=== PATIENT | female | born 1980 | race Caucasian/White ===

== ENCOUNTER 2018-03-11 09:16 | Emergency (ER) | payer OTHER ==
[2018-03-11] MEDS ORDERED: SODIUM CHLORIDE 0.9% 1,000 ML IV ONE (09:43)
[2018-03-11] MEDS ORDERED: PROCHLORPERAZINE INJ 10 MG in SODIUM CHLORIDE 0.9% 50 ML IV ONE (09:43)
[2018-03-11] MEDS ORDERED: DEXAMETHASONE 10 MG/ML VIAL IVP STA (09:44)
[2018-03-11] MEDS ORDERED: KETOROLAC 30 MG/ML VIAL IVP STA (09:44)
[2018-03-11] MEDS ORDERED: diphenhydrAMINE INJ 50 MG/ML VIAL IVP STA (09:44)
--- NOTE | 2018-03-11 09:57 | ED Physician Documentation ---
PD HPI HEADACHE - Stated complaint Stated Complaint: MIGRAINE - Chief complaint Chief Complaint: Neuro - History obtained from History obtained from: Patient - History of Present Illness Timing - onset: How many months ago (1) Timing - details: Still present Worst headache ever?: Worst headache ever? (No) Location: Right Associated symptoms: Nausea. No: Fever, Stiff neck, Vomiting, Weakness, Numbness Contributing factors: No: Possible carbon monoxide, Recent illness, Trauma Similar symptoms before: Diagnosis (Long history of migraine headaches) Recently seen: Clinic (Seen by PMD one week ago, and dose of sumatriptan was increased.) - Additional information Additional information: The patient is a 37-year-old female with history of migraine headaches, who presents with right sided headache that started about 1 month ago. She has been taking sumatriptan and metoclopramide without relief. This headache is similar to her previous migraines, but is lasting longer than usual. She was seen by her primary physician 1 week ago and the dose of sumatriptan was increased at that time. Associated symptoms include photosensitivity and nausea without vomiting. She denies fever, numbness or weakness. Review of Systems Constitutional: denies: Fever Eyes: reports: Photophobia Ears: denies: Tinnitus/ringing Nose: denies: Congestion Throat: denies: Sore throat Cardiac: denies: Chest pain / pressure Respiratory: denies: Dyspnea, Cough GI: reports: Nausea. denies: Abdominal Pain, Vomiting : denies: Dysuria Skin: denies: Rash Musculoskeletal: denies: Neck pain, Back pain Neurologic: reports: Headache. denies: Focal weakness, Numbness PD PAST MEDICAL HISTORY - Past Medical History Cardiovascular: None Respiratory: Asthma Neuro: Headaches, Migraines Endocrine/Autoimmune: None GI: None CHIEF OPTOMETRY SERVICE: None : None HEENT: None Psych: None Musculoskeletal: Rheumatoid arthritis Derm: None - Past Surgical History Past Surgical History: Yes General: Colonoscopy /CHIEF OPTOMETRY SERVICE: section - Present Medications Home Medications: Ambulatory Orders Medication Instructions Recorded Confirmed Ibuprofen [Motrin] 600 mg PO Q6H PRN #30 tab 11/15/13 01/11/14 Metoclopramide [Reglan] 03/11/18 SUMAtriptan [Imitrex] 03/11/18 - Allergies Allergies/Adverse Reactions: Allergies Allergy/AdvReac Type Severity Reaction Status Date / Time aspirin Allergy Unknown Verified 09/07/18 09:27 codeine Allergy Unknown Verified 03/11/18 09:27 latex Allergy Unknown Verified 03/11/18 09:27 Penicillins Allergy Hives Verified 03/11/18 09:27 Sulfa (Sulfonamide Allergy Unknown Verified 03/11/18 09:27 Antibiotics) - Social History Does the pt smoke?: No Smoking Status: Never smoker Does the pt drink ETOH?: Yes Does the pt have substance abuse?: No - Immunizations Immunizations are current?: No Immunizations: TDAP >10years/unknown - POLST Patient has POLST: No PD ED PE NORMAL - Vitals Vital signs reviewed: Yes (normal) - General General: Alert and oriented X 3, Well developed/nourished - HEENT HEENT: Atraumatic, PERRL, EOMI, Ears normal, Pharynx benign, Other (Fundi without papilladema.) - Neck Neck: Supple, no meningeal sign, No adenopathy - Cardiac Cardiac: RRR, No murmur - Respiratory Respiratory: No respiratory distress, Clear bilaterally - Abdomen Abdomen: Soft, Non tender - Back Back: No CVA TTP - Derm Derm: No rash - Extremities Extremities: No edema, No calf tenderness / cord - Neuro Neuro: Alert and oriented X 3, No motor deficit, No sensory deficit, Normal speech Results - Vitals Vitals: Vital Signs - 24 hr 03/11/18 03/11/18 09:22 10:59 Temperature 36.8 C 37.1 C Heart Rate 93 77 Respiratory 20 20 Rate Blood Pressure 99/76 101/50 L O2 Saturation 98 99 Oxygen O2 Source Room air PD MEDICAL DECISION MAKING - ED course Complexity details: reviewed old records, re-evaluated patient, considered differential, d/w patient, d/w family ED course: The patient's presentation is most consistent with recurrent episodic headache. Her presentation does not suggest meningitis, intracerebral hemorrhage, temporal arteritis, or pseudotumor cerebri. I discussed with her the expected course of illness, symptomatic treatment and outpatient follow-up, as well as potentially worrisome signs or symptoms that should prompt reevaluation in the emergency department. - Sepsis Event Vital Signs: Vital Signs - 24 hr 03/11/18 03/11/18 09:22 10:59 Temperature 36.8 C 37.1 C Heart Rate 93 77 Respiratory 20 20 Rate Blood Pressure 99/76 101/50 L O2 Saturation 98 99 Oxygen O2 Source Room air Departure - Departure Disposition: 01 Home, Self Care Clinical Impression: Migraine Qualifiers: Migraine type: unspecified Status migrainosus presence: with status migrainosus Intractability: not intractable Qualified Code(s): G43.901 - Migraine, unspecified, not intractable, with status migrainosus Condition: Stable Instructions: ED Headache Migraine Follow-Up: GREER HERNANDEZ MD [Primary Care Provider] - Comments: Drink plenty of fluids. Continue to use sumatriptan and metoclopramide as previously prescribed if needed for recurrent headache. Follow up with your primary physician within 1-2 weeks. Call to schedule an appointment. Return to the emergency department if you develop recurrent or increasing headache, persistent vomiting, or otherwise worsening symptoms. Discharge Date/Time: 03/11/18 11:00
[2018-03-11 11:00] VITALS: BP 101/50
== END 2018-03-11 11:00 | disposition home or self-care (01) ==
LOC: ED 09:16
DX: G43.901 Migraine, unspecified, not intractable, with status migrainosus (principal)
CPT/HCPCS: 96365; 96375; 99283; 99284; J1200; J7040

== ENCOUNTER 2020-11-13 11:09 | Emergency (ER) | payer OTHER ==
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
[2020-11-13 11:45] VITALS: BP 101/73
[2020-11-13] MEDS ORDERED: KETOROLAC 15 MG/ML VIAL IVP STA (11:47)
[2020-11-13] MEDS ORDERED: HYDROmorphone 2 MG/ML VIAL IM STA (11:48)
[2020-11-13] MEDS ORDERED: KETOROLAC 30 MG/ML VIAL IM STA (12:02)
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
[2020-11-13] MEDS ORDERED: oxyCODONE 5 MG TABLET PO STA (13:12)
== END 2020-11-13 13:34 | disposition home or self-care (01) ==
LOC: ED 11:09
DX: S20.223A Contusion of bilateral back wall of thorax, initial encounter (principal); Y04.2XXA Assault by strike against or bumped into by another person, initial encounter
CPT/HCPCS: 71250; 96372; 99284; J1170

== ENCOUNTER 2021-12-30 14:13 | Emergency (ER) | payer OTHER ==
[2021-12-30 14:25] VITALS: BP 102/66
--- NOTE | 2021-12-30 14:40 | ED Physician Documentation ---
PD HPI LOWER EXT INJURY - Stated complaint Stated Complaint: L ANKLE INJ - Chief complaint Chief Complaint: Trauma Ext - History obtained from History obtained from: Patient, Family () - Additional information Additional information: Injured her ankle a few days ago with an inversion injury after tripping. Pain got worse last night after being startled and reinjuring it now pain going up to the lateral knee and down to the lateral foot. She is able to walk and bear weight. Declines pain medication on initial evaluation. 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: None : None HEENT: None Psych: None Musculoskeletal: Rheumatoid arthritis Derm: None - Past Surgical History Past Surgical History: Yes General: Colonoscopy /SEMICONDUCTORS WAFER BREAKER: section - Present Medications Home Medications: Ambulatory Orders Medication Instructions Recorded Confirmed SUMAtriptan [Imitrex] 100 mg ORAL DAILY PRN 03/11/18 12/30/21 Fexofenadine/Pseudoephedrine 1 tab ORAL DAILY 12/30/21 12/30/21 [Karla-D 24 Hour Tablet] Gabapentin [Neurontin] 300 mg PO BID PRN 12/30/21 12/30/21 HYDROcod/ACETAM 5/325 [Huntley 5/325] 1 - 2 tab PO Q6H PRN #15 tablet 12/30/21 - Allergies Allergies/Adverse Reactions: Allergies Allergy/AdvReac Type Severity Reaction Status Date / Time aspirin Allergy Unknown Verified 12/30/21 14:20 codeine Allergy Unknown Verified 12/30/21 14:20 latex Allergy Unknown Verified 12/30/21 14:20 Penicillins Allergy Hives Verified 12/30/21 14:20 Sulfa (Sulfonamide Allergy Unknown Verified 12/30/21 14:20 Antibiotics) - Social History Does the pt smoke?: No Smoking Status: Never smoker Does the pt drink ETOH?: Yes Does the pt have substance abuse?: No - Immunizations Immunizations are current?: No Immunizations: TDAP >10years/unknown - POLST Patient has POLST: No PD ED PE NORMAL - Vitals Vital signs reviewed: Yes - General General: Alert and oriented X 3, No acute distress - Extremities Extremities: Other (Tender over both malleoli of the left ankle, also mildly over the proximal fibula and proximal fifth metatarsal. No deformity.) - Neuro Neuro: Alert and oriented X 3, Normal speech Results - Vitals Vitals: Vital Signs - 24 hr 12/30/21 14:21 Temperature 36.8 C Heart Rate 94 Respiratory 16 Rate Blood Pressure 102/66 O2 Saturation 100 Oxygen O2 Source Room air - Rads (name of study) X-rays of the left ankle, foot, and tib-fib are negative Radiology: EMP read contemporaneously Departure - Departure Disposition: Home, Self Care Clinical Impression: Ankle injury Qualifiers: Encounter type: initial encounter Laterality: left Qualified Code(s): S99.912A - Unspecified injury of left ankle, initial encounter Injury of foot Qualifiers: Encounter type: initial encounter Laterality: left Qualified Code(s): S99.922A - Unspecified injury of left foot, initial encounter Condition: Good Record reviewed to determine appropriate education?: Yes Instructions: ED Sprain Ankle W X Ray, ED Sprain Foot Prescriptions: HYDROcod/ACETAM 5/325 [Huntley 5/325] 1 - 2 tab PO Q6H PRN #15 tablet PRN Reason: Pain Comments: I sent your prescription electronically to [facility] in [place]. Return for new or worsening symptoms. Follow-up with your doctor at the end of the week or early next week for recheck. I am prescribing a short course of narcotic pain medication for you. These are potentially dangerous and addictive medications that should be used carefully. These medications may constipate you. Take an [id number] stool softener (docusate) twice daily with plenty of water while taking these medications. If you go 24 hours without a bowel movement, take [id number] miralax, per package instructions. Do not drink or drive while taking these medications. If you received narcotic or sedating medications while in the emergency dep artment, do not drive for 24 hours. Store this medication in a safe, secure place and out of reach of children. It is a violation of federal law to give or sell this medication to another person or to use in a manner other than prescribed. The ED will not refill narcotic prescriptions, including prescriptions lost or stolen. To dispose of unwanted medications: 1. [facility] at [address] in [place] has a medication drop box. They accept prescription medications (in pill form) Wednesday through Wednesday 9:00 a.m. to 5:00 p.m. 2. The [facility] accepts prescription medications (in pill form only) for disposal year round. Call for more information. 3. Contact the [facility] for the next [employer] sponsored prescription drug collection event. , [phone], or [phone]; Note that many narcotic pain relievers also contain Tylenol/acetaminophen. Please ensure that your total dose of acetaminophen from all sources does not exceed 3 g (3000 mg) per day. Discharge Date/Time: 12/30/21 16:05
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
--- NOTE | 2021-12-30 15:07 | XRAY Report ---
PROCEDURE: Foot 3 View LT INDICATIONS: foot/leg inj TECHNIQUE: 3 views of the foot were acquired. COMPARISON: None FINDINGS: Bones: No fractures or dislocations. Mild hallux valgus is seen. Mild first MTP joint osteoarthritic changes also noted. No suspicious bony lesions. Soft tissues: No tibiotalar joint effusion. Achilles tendon appears normal. IMPRESSION: No acute left foot fracture or dislocation. Mild hallux valgus and mild first MTP joint osteoarthriti s. Reviewed by: Balaji Galindo MD on 12/30/2021 3:05 PM PDT Approved by: Balaji Galindo MD on 12/30/2021 3:05 PM PDT Station ID: [id number]
--- NOTE | 2021-12-30 15:07 | XRAY Report ---
PROCEDURE: Ankle 3 View LT INDICATIONS: injury/pain TECHNIQUE: 3 views of the ankle were acquired. COMPARISON: None FINDINGS: Bones: No fractures or dislocations. Ankle mortise is normally aligned. No suspicious bony lesions . Soft tissues: No tibiotalar joint effusion. Achilles tendon appears normal. IMPRESSION: No gross acute ankle fracture or dislocation. Ankle mortise is congruent. Reviewed by: Balaji Galindo MD on 12/30/2021 3:06 PM PDT Approved by: Balaji Galindo MD on 12/30/2021 3:06 PM PDT Station ID: [id number]
[2021-12-30] MEDS ORDERED: HYDROcod/ACETAM 5/325 MG TABLET PO STA (15:08)
[2021-12-30] MEDS ORDERED: HYDROmorphone 1 MG/ML CARPUJECT IM STA (15:12)
[2021-12-30] MEDS ORDERED: KETOROLAC 30 MG/ML VIAL IM STA (15:12)
== END 2021-12-30 16:05 | disposition home or self-care (01) ==
LOC: ED 14:13
DX: S99.912A Unspecified injury of left ankle, initial encounter (principal); S99.922A Unspecified injury of left foot, initial encounter; X50.1XXA Overexertion from prolonged static or awkward postures, initial encounter
CPT/HCPCS: 73590; 73610; 73630; 96372; 99283; J1170